=== PATIENT | female | born 2000 | race Caucasian/White ===

== ENCOUNTER 2018-06-15 05:46 | Day surgery (SDC) | payer BC, OTHER ==
[~2018-06-15 05:46] MED LIST: Buffered Lidocaine 0.9% SYRIN* 5 ML/SYR SYRINGE INTRADERM ONE; Lactated Ringers 1000 ML Bag* 1,000 ML IV SCH
[2018-06-15] MEDS ORDERED: Ondansetron INJ* 2 MG/ML VIAL ONE (06:51)
[2018-06-15] MEDS ORDERED: Dexamethasone IV* 4 MG/ML 1 ML (4 MG) ONE (06:51)
[2018-06-15] MEDS ORDERED: Scopolamine 1.5 mg* PATCH ONE (06:51)
[2018-06-15] MEDS ORDERED: ceFAZolin 2 GM PREMIX in ORs 2 GM/50 ML BAG IVPB ONE (06:51)
[2018-06-15] MEDS ORDERED: EPINEPHRINE 1 MG/ML 1 ML VIAL ONE (06:56)
[2018-06-15] MEDS ORDERED: ceFAZolin 1 GM VIAL(*) ONE ×2 (06:56→08:53)
[2018-06-15] MEDS ORDERED: Lidocaine 2% PF* 10 ML AMP ONE (06:56)
[2018-06-15] MEDS ORDERED: Gentamicin ADULT (*) 40 MG/ML VIAL (2 ML VIAL = 80 MG) ONE ×2 (06:56→08:52)
[2018-06-15] MEDS ORDERED: Sodium Bicarbonate 8.4% SYR* 10 ML SYRINGE ONE (06:57)
[2018-06-15] MEDS ORDERED: Bacitracin IV* 50,000 UNITS INJ ONE ×2 (06:57→08:53)
[2018-06-15] MEDS ORDERED: Bupivacaine 0.25% W/EPI* 10 ML SDV ONE (07:22)
[2018-06-15] MEDS ORDERED: Midazolam* 1 MG/ML 2 ML VIAL (2 MG) ONE (07:34)
[2018-06-15] MEDS ORDERED: fentaNYL* 50 MCG/ML 2 ML VIAL (100 MCG VIAL) ONE ×3 (07:34→10:23)
[2018-06-15] MEDS ORDERED: Propofol* 10 MG/ML 20 ML BTL ONE (07:55)
[2018-06-15] MEDS ORDERED: Lidocaine 2% PF * 5 ML VIAL ONE (07:55)
[2018-06-15] MEDS ORDERED: EPHEDrine (Pressors)* 50 MG/ML VIAL ONE (08:50)
[2018-06-15] MEDS ORDERED: Metoclopramide IV* 5 MG/ML 2 ML VIAL IV PRN (08:54)
[2018-06-15] MEDS ORDERED: HYDROmorphone INJ1* 1 MG/ML SYRINGE IV PRN (08:54)
[2018-06-15] MEDS ORDERED: Naloxone* 0.4 MG/ML 1 ML VIAL IV PRN (08:54)
[2018-06-15] MEDS ORDERED: PROCHLORPERAZINE INJ 5 MG/ML 2 ML VIAL IV PRN (08:54)
[2018-06-15] MEDS ORDERED: Acetaminophen TAB* 325 MG PO PRN (08:54)
[2018-06-15] MEDS: fentaNYL* 50 MCG/ML 2 ML VIAL (100 MCG VIAL) IV PRN ×3 (10:27→11:14)
[2018-06-15] MEDS ORDERED: HYDROcodone/ACETAMIN 5-325 MG* 1 TAB ONE (10:51)
[2018-06-15 11:40] VITALS: BP 129/91
== END 2018-06-15 12:06 | disposition home or self-care (01) ==
LOC: OR 05:46
PROVIDERS: ATTEND Plastic Surgery
DX: Z41.1 Encounter for cosmetic surgery (principal)
CPT/HCPCS: 81025; A9270-GY; J0690; J1100; J1580; J2001; J2250; J2405; J2704; J3010

== ENCOUNTER 2018-06-17 05:44 | Day surgery (SDC) | payer BC ==
[2018-06-17] MEDS ORDERED: Dexamethasone IV* 4 MG/ML 1 ML (4 MG) ONE (06:12)
[2018-06-17] MEDS ORDERED: Ondansetron INJ* 2 MG/ML VIAL ONE (06:12)
[2018-06-17] MEDS ORDERED: ceFAZolin 2 GM PREMIX in ORs 2 GM/50 ML BAG IVPB ONE (06:12)
[2018-06-17] MEDS ORDERED: Scopolamine 1.5 mg* PATCH ONE (06:12)
[2018-06-17] MEDS ORDERED: Gentamicin ADULT (*) 40 MG/ML VIAL ONE ×2 (06:35→07:47)
[2018-06-17] MEDS ORDERED: Bacitracin IV* 50,000 UNITS INJ ONE ×2 (06:36→07:47)
[2018-06-17] MEDS ORDERED: Lidocaine 2% PF* 10 ML AMP ONE (06:36)
[2018-06-17] MEDS ORDERED: Bupivacaine 0.25% W/EPI* 10 ML SDV ONE (06:36)
[2018-06-17] MEDS ORDERED: ceFAZolin 1 GM VIAL(*) ONE ×2 (06:36→07:47)
[2018-06-17] MEDS ORDERED: Sodium Bicarbonate 8.4% SYR* 10 ML SYRINGE ONE (06:36)
[2018-06-17] MEDS ORDERED: EPINEPHRINE 1 MG/ML 1 ML VIAL ONE (06:36)
[2018-06-17] MEDS ORDERED: fentaNYL* 50 MCG/ML 2 ML VIAL (100 MCG VIAL) ONE ×2 (07:00→09:08)
[2018-06-17] MEDS ORDERED: Midazolam* 1 MG/ML 2 ML VIAL (2 MG) ONE (07:00)
[2018-06-17] MEDS ORDERED: Propofol* 10 MG/ML 20 ML BTL ONE (07:18)
[2018-06-17] MEDS ORDERED: Lidocaine 2% PF * 5 ML VIAL ONE (07:18)
[2018-06-17] MEDS ORDERED: HYDROcodone/ACETAMIN 5-325 MG* 1 TAB PO PRN (07:56)
[2018-06-17] MEDS ORDERED: PROCHLORPERAZINE INJ 5 MG/ML 2 ML VIAL IV PRN (07:56)
[2018-06-17] MEDS ORDERED: Naloxone* 0.4 MG/ML 1 ML VIAL IV PRN (07:56)
[2018-06-17] MEDS ORDERED: Acetaminophen TAB* 325 MG PO PRN (07:56)
[2018-06-17] MEDS ORDERED: HYDROcodone/ACETAMIN 5-325 MG* 1 TAB ONE (09:08)
[2018-06-17 10:53] VITALS: BP 120/77
== END 2018-06-17 11:00 | disposition home or self-care (01) ==
LOC: OR 05:44
PROVIDERS: ATTEND Plastic Surgery
DX: L76.32 Postprocedural hematoma of skin and subcutaneous tissue following other procedure (principal)
CPT/HCPCS: A9270-GY; J0690; J1100; J1580; J2001; J2250; J2405; J2704; J3010